=== PATIENT | female | born 1990 | race Caucasian/White ===

== ENCOUNTER 2019-10-19 16:44 | Emergency (ER) | payer SELFPAY ==
--- NOTE | 2019-10-19 17:28 | RAD ---
Right hand 3 views HISTORY: Right hand injury. FINDINGS: Joint spaces are preserved. No acute fracture, dislocation, or aggressive osseous erosions. IMPRESSION : No abnormalities are demonstrated.
== END 2019-10-19 17:30 | disposition home or self-care (01) ==
LOC: MADERS 16:44
DX: S60.221A Contusion of right hand, initial encounter (principal); Z87.891 Personal history of nicotine dependence; W18.30XA Fall on same level, unspecified, initial encounter